=== PATIENT | female | born 1985 | race Caucasian/White ===

== ENCOUNTER 2019-09-27 23:20 | Inpatient (IN) | payer BC, SELFPAY ==
--- NOTE | 2019-09-27 23:20 | LDADM ---
This patient, Nae Rothman, was admitted to Labor/Delivery/Recovery 103 on 09/27/19 at 23:20. Plans for labor, pain management and were discussed with patient. Patient/family oriented to hospital policies and general routines including ID bracelet, bed and alarms, visiting hours, pain management, procedures, bathroom and other care routines, personal items, smoking policy, room service/diet and guest tray routines, infant security routines, and visiting hours. Patient/Family are encouraged to report perceived risks to care and to ask questions if they do not understand what they are told or what they should do. See OBIX for further documentation.
[2019-09-27 23:35] VITALS: TEMP 36.6
[2019-09-27] MEDS: LACTATED RINGERS 1,000 ML 999 ML IV CONT (23:45)
[2019-09-27 23:48] VITALS: BP 118/80; PULSE 80
[2019-09-27 23:51] VITALS: BP 118/86; PULSE 87
[2019-09-27 23:52] VITALS: PULSE 98; O2SAT 91
[2019-09-27 23:54] LABS: Glucose Point of Care 110 (65-105)
[2019-09-27 23:55] LABS: Basophils Percent Auto 0.2 % (0.2-1.2); Eosinophils Absolute Auto 0.1 K/mm3 (0-0.3); Eosinophils Percent Auto 0.7 % (0-4.4); Hematocrit 33.4 % (37.0-47.0); Hemoglobin 11.8 g/dL (12.0-15.0); Immature Granulocyte Absolute 0.06 K/mm3 (0.00-0.031); Immature Granulocyte Percent A 0.6 % (0-0.5); Lymphocytes Absolute Auto 1.89 K/mm3 (0.9-3.2); Lymphocytes Percent Auto 18.8 % (18.3-44.2); Mean Corpuscular HGB Conc 35.3 g/dl (32-36); Mean Corpuscular Hemoglobin 32.5 pg (26-34); Monocytes Absolute Auto 0.7 K/mm3 (0.1-0.6); Monocytes Percent Auto 6.9 % (2.6-8.5); Neutrophils Absolute Auto 7.3 K/mm3 (1.3-6.7); Neutrophils Percent Auto 72.8 % (45.5-73.1); Platelet Count Result 230 k/mm3 (150-375); Red Blood Count 3.63 M/mm3 (4.2-5.4); Red Cell Distribution Width 13.1 % (11.5-14.5)
[2019-09-27 23:57] VITALS: PULSE 84; O2SAT 100
[2019-09-28] VITALS (61 sets, daily range): BP systolic 86–126; BP diastolic 57–102; PULSE 72–205; RESP 14–16; TEMP 36.6–37.2; O2SAT 79–100; BMI 23.8
[2019-09-28] MEDS: LACTATED RINGERS 1,000 ML 125 ML IV CONT (00:21)
--- NOTE | 2019-09-28 01:42 | P.HP_ITS ---
Obstetrics - Admit Note Admission Note: record reviewed. No pertinent additions to the history and/or any subsequent changes in the physical findings that are not consistent with the expected course of the were found.previous section. At office today reviewed including risk of uterine, demise. pt arri radha in active labor with SROM of clear fluid. GDM diet controlled Additions to the history and/or subsequent changes in the physical findings follow. None.
[2019-09-28] MEDS: OXYTOCIN 30 UNITS/NS 500 ML 30 UNITS/500 ML BAG 999 UNITS IV CONT (02:00)
--- NOTE | 2019-09-28 02:18 | P.PCNOB_ITS ---
OB - Delivery Note Procedure Delivery date: 09/28/19 Procedure: TOLAC events: Gestational Diabetes Intrapartal events: None Induction method: none Delivery monitor: external FHT and external uterine Route of delivery: Laceration description: Perineal - 2nd Degree (right) Delivery repair: vicryl Specimen: Yes Estimated blood loss (mL): 250 Anesthesia type: Epidural Disposition: other () [place] Baby Date of : 09/28/19 Time of : 01:59 Weeks of gestation at delivery: 39 gender: Male Weight (pounds): 6 Weight (ounces): 3 presentation: vertex position: Left Occiput Anterior cord vessel description: 3 Vessels score one minute: 8 score five minutes: 9 Narrative: skin to skin, mother and baby in stable condition
[2019-09-28] MEDS: OXYTOCIN 30 UNITS/NS 500 ML 30 UNITS/500 ML BAG 125 UNITS IV CONT (02:44)
[2019-09-28] MEDS: BENZOCAINE 20% AER SPR (*SP) 56 GM CAN 1 SPRAY TOPICAL (03:33)
[2019-09-28] MEDS: LANOLIN (LANSINOH) 7.5 GM CREAM 1 APPLIC TOPICAL (03:33)
[2019-09-28] MEDS: WITCH HAZEL 40 PADS 1 PAD TOPICAL (03:33)
[2019-09-28] MEDS: IBUPROFEN 600 MG TABLET PO ×2 (03:33→14:42)
--- NOTE | 2019-09-28 04:50 | PC.NURSE ---
Patient transferred to post room #291 via wheelchair. Support person present. Oriented to unit, room, information board, rooming in, admission packet and security measures. Patient verbalizes understanding.
[2019-09-28] MEDS: DOCUSATE SODIUM 100 MG CAPSULE PO (08:00)
[2019-09-28] MEDS: MULTIVIT/MIN/PREN/FOL AC/IRON TABLET 1 TAB PO (08:00)
[2019-09-29] MEDS: IBUPROFEN 600 MG TABLET PO (04:34)
[2019-09-29 04:35] LABS: Hematocrit 28.7 % (37.0-47.0); Hemoglobin 9.5 g/dL (12.0-15.0)
[2019-09-29] MEDS: POLYSACCHARIDE IRON COMPLEX 150 MG CAPSULE PO (07:58)
[2019-09-29] MEDS: MULTIVIT/MIN/PREN/FOL AC/IRON TABLET 1 TAB PO (07:58)
[2019-09-29] MEDS: DOCUSATE SODIUM 100 MG CAPSULE PO (07:58)
--- NOTE | 2019-09-29 08:43 | PM.OBPNVD ---
OB - PN: Subj Subjective Date/time seen: 09/29/19 08:43 Patient comments: no complaints, pain well controlled and other (Lochia similar to menses) [place] baby status: doing well OB - PN: Obj Data Labs CBC & Chem 7: 09/29/19 04:29 Labs: Laboratory Results - last 24 hr 09/29/19 04:29 Hgb 9.5 L Hct 28.7 L OB - PN A/P Plan day: 1 (s/p vaginal delivery, doing well) Plan: routine care and discharge home (Follow up in 4 weeks) Time Spent With Patient Time: Total time spent is greater than 50% in coordination of care (as documented) at patient's floor/unit and/or counseling patient: Time with patient: less than 15 minutes Exam Const: General: no acute distress GI: Inspection: other (Fundus firm and nontender at umbilicus) GI Palp: Yes Soft to palpation and No Tenderness to palpation present (GI) Extrem: General: no edema
--- NOTE | 2019-09-29 09:41 | WPDANLDPN2 ---
Anes-Prog Note L&D Date/Time: 09/29/19 09:41 Comfortable throughout: labor and delivery Neuraxial method: epidural Epidural/Spinal procedure site: clean & non-tender Neuro status: Neuro function grossly intact. Cardiovascular status: normal Respiratory status: normal Airway patency: baseline Mental status: baseline Post-Op hydration status: normal Vital Signs: Last Vital Signs Temp 36.9 C 09/28/19 19:20 Pulse 75 09/28/19 19:20 Resp 16 09/28/19 19:20 BP 101/69 09/28/19 19:20 Pulse Ox 100 09/28/19 10:52 Post-procedural complaints: none Patient feedback: Patient satisfied with anesthetic care.
[2019-09-29 12:20] VITALS: BP 103/62; PULSE 60; RESP 14; TEMP 36.7
[2019-09-30 10:31] LABS: Rapid Plasma Reagin Non-Reactive (NonReactive)
[2019-10-01 14:48] VITALS: BP 136/88; PULSE 84; RESP 20; TEMP 36.9; O2SAT 100
--- NOTE | 2019-10-01 18:36 | PM.OBDSVD ---
OB - DS: Summary OB Procedures : None OB Procedures Intrapartum: Spontaneous Vag Delivery and OB Procedures: : None Time Spent with Patient Time attestation: Total time spent providing and/or coordinating discharge services: DS: Data Data Completed and Pending Completed studies during hospitalization: Pending at discharge 09/28/19 02:05 Surgical [PTH] Routine Discharge Plan Discharge Attending physician on discharge: Aubree Keith Consulting providers: Sury Abreu Discharging Clinician: Aubree Keith Patient Disposition: Home, Self-Care Activity: may shower and pelvic rest Diet: regular Discharge Instructions: Education: Mom and Baby Guide Given to: Mother Follow-Up: Call your delivering provider's office for an appointment to be seen in: 4 Weeks Mom and baby should come to the [facility] for the follow-up appointment. Appointment Date/Time: September 30, 2019 at 2:30 pm What to expect at your follow-up visit: Blood Pressure Check Physical Assessment Call [phone] if you are unable to keep your appointment time. BREAST CARE: 1. Wear a snug supportive bra. 2. For engorgement discomfort: Breast Feeding: A. Apply warm moist washcloths B. Express milk as needed to relieve engorgement C. Wear loose clothing 3. For sore nipples: A. Identify correct latch-on B. Apply warm moist washcloths before and after nursing C. Air dry nipples after nursing D. May apply Lansinoh cream to nipples PERINEAL CARE: 1. Until bleeding stops, use your elsa bottle after urinating 2. Change your pad frequently throughout the day 3. You may take sitz baths several times a day (fill your bathtub with warm water and soak for 20 minutes.) Do NOT bathe in the water 4. No tub baths until seen by your physician - You may shower ACTIVITY: 1. Rest as much as possible. 2. Do not exercise or lift anything heavier than your baby (such as laundry or other children.) 3. Avoid stairs or driving as much as possible. 4. Do not put anything into the vagina. No douching, tampons, or sexual activity until seen by physician. NOTIFY PHYSICIAN IF YOU HAVE ANY QUESTIONS OR IF ANY OF THE FOLLOWING SYMPTOMS OCCUR: 1. If your perineum becomes red, swollen, or more painful than what you have experienced in the hospital. 2. If your vaginal bleeding becomes foul smelling. 3. If your vaginal bleeding becomes more heavy than a period or if your bleeding changes from pink to bright red. However, you may pass an occasional walnut-sized clot once or twice for the first week . 4. If you experience a sharp, shooting pain in you calves. 5. If you discover a hard, reddened area on your breast or if you experience flu-like symptoms. DIET: 1. Eat regular, well-balanced meals. 2. Drink plenty of fluids daily. If , drink to thirst. Stand Alone Forms: General Discharge Information Follow-up/Referrals: Sury Abreu CNM [Certified Nurse Superintendent [place]] - 4 Weeks Discharge Medications: New hydrocodone-acetaminophen 5-325 mg Tablet 1 tab PO Q3HR PRN (Reason: Pain Rated 4-6) Qty: 20 RF: 0 ibuprofen 600 mg Tablet 600 mg PO Q6H PRN (Reason: Cramping) Qty: 60 RF: 0 Continued PNV cmb#95-ferrous fumarate-FA [] 28 mg iron- 800 mcg Tablet 1 tablet PO DAILY RF: 0 Date of admission: 09/27/19 23:20 Primary Care Provider: UNKNOWN,DOCTOR Admitting Provider: Aubree Keith Discharge Date/Time: 09/29/19 11:30 Attending physician on admission: Aubree Keith
--- NOTE | 2019-10-04 07:30 | PM.OBDSVD ---
DS: Diagnosis Admitting Diagnosis Admitting Diagnosis: Encounter for supervision of normal , unspecified, third trimester OB - DS: Summary OB Procedures : None OB Procedures Intrapartum: Spontaneous Vag Delivery OB Procedures: : None Time Spent with Patient Time attestation: Total time spent providing and/or coordinating discharge services: DS: Data Data Completed and Pending Completed studies during hospitalization: Pending at discharge 09/28/19 02:05 Surgical [PTH] Routine Discharge Plan Discharge Attending physician on discharge: Aubree Keith Consulting providers: Sury Abreu Discharging Clinician: Aubree Keith Patient Disposition: Home, Self-Care Activity: may shower and pelvic rest Diet: regular Discharge Instructions: Education: Mom and Baby Guide Given to: Mother Follow-Up: Call your delivering provider's office for an appointment to be seen in: 4 Weeks Mom and baby should come to the [facility] for the follow-up appointment. Appointment Date/Time: September 30, 2019 at 2:30 pm What to expect at your follow-up visit: Blood Pressure Check Physical Assessment Call [phone] if you are unable to keep your appointment time. BREAST CARE: 1. Wear a snug supportive bra. 2. For engorgement discomfort: Breast Feeding: A. Apply warm moist washcloths B. Express milk as needed to relieve engorgement C. Wear loose clothing 3. For sore nipples: A. Identify correct latch-on B. Apply warm moist washcloths before and after nursing C. Air dry nipples after nursing D. May apply Lansinoh cream to nipples PERINEAL CARE: 1. Until bleeding stops, use your elsa bottle after urinating 2. Change your pad frequently throughout the day 3. You may take sitz baths several times a day (fill your bathtub with warm water and soak for 20 minutes.) Do NOT bathe in the water 4. No tub baths until seen by your physician - You may shower ACTIVITY: 1. Rest as much as possible. 2. Do not exercise or lift anything heavier than your baby (such as laundry or other children.) 3. Avoid stairs or driving as much as possible. 4. Do not put anything into the vagina. No douching, tampons, or sexual activity until seen by physician. NOTIFY PHYSICIAN IF YOU HAVE ANY QUESTIONS OR IF ANY OF THE FOLLOWING SYMPTOMS OCCUR: 1. If your perineum becomes red, swollen, or more painful than what you have experienced in the hospital. 2. If your vaginal bleeding becomes foul smelling. 3. If your vaginal bleeding becomes more heavy than a period or if your bleeding changes from pink to bright red. However, you may pass an occasional walnut-sized clot once or twice for the first week . 4. If you experience a sharp, shooting pain in you calves. 5. If you discover a hard, reddened area on your breast or if you experience flu-like symptoms. DIET: 1. Eat regular, well-balanced meals. 2. Drink plenty of fluids daily. If , drink to thirst. Stand Alone Forms: General Discharge Information Follow-up/Referrals: Sury Abreu CNM [Certified Nurse Operations Support Manager] - 4 Weeks Discharge Medications: New hydrocodone-acetaminophen 5-325 mg Tablet 1 tab PO Q3HR PRN (Reason: Pain Rated 4-6) Qty: 20 RF: 0 ibuprofen 600 mg Tablet 600 mg PO Q6H PRN (Reason: Cramping) Qty: 60 RF: 0 Continued PNV cmb#95-ferrous fumarate-FA [] 28 mg iron- 800 mcg Tablet 1 tablet PO DAILY RF: 0 Date of admission: 09/27/19 23:20 Primary Care Provider: UNKNOWN,DOCTOR Admitting Provider: Aubree Keith Discharge Date/Time: 09/29/19 11:30 Attending physician on admission: Aubree Keith
== END 2019-09-29 11:30 | disposition home or self-care (01) | DRG 807 ==
LOC: ANHLDR 23:56 → ANHOB2 09-28 05:19
PROVIDERS: Advanced Practice Midwife; Admitting Provider Obstetrics & Gynecology; Visit Provider Obstetrics & Gynecology
DX: O34.211 Maternal care for low transverse scar from previous cesarean delivery (principal); Z37.0 Single live birth; O24.420 Gestational diabetes mellitus in childbirth, diet controlled; O70.1 Second degree perineal laceration during delivery; Z3A.39 39 weeks gestation of pregnancy
CPT/HCPCS: 36415; 85014; 85018; 85025; 86592; 86850; 86900; 86901; 88307; A9270; J2590; J2795; J7120

== ENCOUNTER 2020-11-03 12:42 | Emergency (ER) | payer BC, SELFPAY ==
--- NOTE | ~2020-11-03 | CT_ITS ---
EXAMINATION: CT brain wo/w con EXAM DATE: 11/03/2020 14:57 INDICATION: Headache, right side. TECHNIQUE: Spiral CT of the head was performed without contrast. Axial, coronal and sagittal images were reviewed. Patient was then injected with 100 cc Omnipaque 350 intravenous contrast and reimaged. Postcontrast axial, coronal, sagittal reformatted images reviewed. The dose-length product (DLP) f or this examination was 1210.67 mGy-cm. The exposure was tailored according to patient size, and ite rative reconstruction (ASIR) was used as additional dose reduction technique. There is no prior stud y for comparison. FINDINGS: There is no acute intraparenchymal hemorrhage. No evidence of intraparenchymal brain mass lesion. No evidence of acute infarction. There is no mass effect or midline shift. The ventricles are normal in size. There are no extra-axial collections. There are no acute calvarial fractures. T he orbits are unremarkable. Soft tissue is unremarkable. The visualized sinuses and mastoid air michelle ls are well aerated. There are no areas of abnormal enhancement on the postcontrast images. IMPRESSION: 1. Normal head CT examination. Reviewed, dictated and finalized at location B.
[2020-11-03 12:49] VITALS: BP 99/60; PULSE 72; RESP 18; TEMP 37; O2SAT 100
--- NOTE | 2020-11-03 14:11 | ED.HA ---
HPI - Headache General Chief Complaint: Headache Stated Complaint: headache Time Seen by Provider: 11/03/20 12:49 History of Present Illness HPI Narrative: Patient is a 35-year-old female who presents ER with right-sided headache. Began at 11 AM. Sudden pressure along the right side. Associated with burning going into her ear and face. No dizziness or change in vision or hearing. Headache has improved with ibuprofen but has not totally abated. Discomfort in the ear has also improved. No drainage from her ear. Patient reports 1 week earlier she had tinnitus in her right ear associate with some mild dizziness but does not occurring today. No previous history of vertigo. No family history of intracranial hemorrhage or cerebral aneurysm. Related Data Home Medications Medication Instructions Recorded Confirmed PNV cmb#95-ferrous fumarate-FA 1 tablet PO DAILY 09/02/19 09/28/19 [] Allergies Allergy/AdvReac Type Severity Reaction Status Date / Time No Known Allergies Allergy Verified 09/28/19 00:42 Review of Systems Review of Systems: All systems reviewed & are unremarkable except as noted in HPI and below Constitutional: Constitutional: Denies chills, Denies fever(s) and Denies weakness Eyes: Eyes: Denies change in vision and Denies photophobia ENT: Reports dizziness, Denies nasal congestion and Denies sore throat Comments: Tinnitus Cardiovascular: Cardiovascular: Denies chest pain and Denies radiating jaw, neck or arm pain Neurologic: Denies confusion, Denies syncope, Reports headache(s), Denies focal weakness and Denies numbness PMFSH Past Medical History Medical History (Updated 11/03/20 @ 15:45 by Arnel Reyes MD) Healthy female adult Surgical History Surgical History (Updated 11/03/20 @ 14:15 by Arnel Reyes MD) No history of previous surgery Family History Family History (Updated 09/02/19 @ 15:43 by Iftikhar Stephens RN) Other Unknown family medical history Social History Social History Smoking status: Never smoker Substance use: never Gender identity (if verbalized by the patient): Female Spiritual care concerns: No Exam Narrative: Exam Narrative: GENERAL: Well-appearing, well-nourished, and in no acute distress. HEAD: Normocephalic, atraumatic. EYES: PERRLA and EOMI. ENT: Mucous membranes moist. TMs normal bilaterally. Ear canals free of cerumen. CHEST: Clear to auscultation. No respiratory distress. HEART: Regular rate and rhythm. Normal peripheral pulses. EXTREMITIES: Normal range of motion. No edema. NEURO: Moves all extremities well. Clear speech. Sensation intact. Alert and oriented x3. PSYCH: Normal mood and affect. Course Course Emergency Course: Patient from results. Headache resolved with Tylenol. Discharge home. Patient may be having eustachian tube dysfunction causing headache and vertiginous symptoms. Recommend scheduled Tylenol and ibuprofen for home and Zyrtec daily. Vital Signs Vital signs: Vital Signs Temperature 98.6 F 11/03/20 12:49 Pulse Rate 72 11/03/20 12:49 Respiratory Rate 18 11/03/20 12:49 Blood Pressure 99/60 L 11/03/20 12:49 Pulse Oximetry 100 11/03/20 12:49 Temperature 98.6 F 11/03/20 12:49 Pulse Rate 72 11/03/20 12:49 Respiratory Rate 18 11/03/20 12:49 Blood Pressure 99/60 L 11/03/20 12:49 Pulse Oximetry 100 11/03/20 12:49 MDM - Headache Lab Data Result diagrams: 11/03/20 14:15 Labs: Lab Results 11/03/20 Range/Units 14:15 Creatinine 0.80 (0.7-1.0) mg/dL Estim Creat Clear Calc 66 ml/min Estimated GFR > 60 (59 - ) UCG Bedside Result Negative Reference Range: Negative Imaging Data Radiologist's impression: ITS Impressions Head CT 11/03/20 14:59 IMPRESSION: 1. Normal head CT examination. Discharge Plan Discharge Clinical Impression:
[2020-11-03 14:36] LABS: Estimated CRCL calculation 66 ml/min; Estimated Glomerular Filt Rate > 60
--- NOTE | 2020-11-03 14:50 | PC.NURSE ---
Pt to CT scan at this time.
[2020-11-03 16:17] VITALS: BP 110/73; PULSE 64; RESP 17; O2SAT 100
== END 2020-11-03 16:26 | disposition home or self-care (01) ==
PROVIDERS: Emergency Provider Emergency Medicine
DX: H69.90 Unspecified Eustachian tube disorder, unspecified ear (principal); R51.9 Headache, unspecified
CPT/HCPCS: 36415; 70470; 81025; 82565; 96365; 99284; J0131; Q9967

== ENCOUNTER → 2020-11-20 08:18 | Outpatient (CLI) | payer BC, SELFPAY ==
--- NOTE | ~2020-11-20 | MMUS_ITS ---
EXAMINATION: MM diagnostic kasia RT w newton, US breast RT complete HISTORY: Palpable right breast mass TECHNIQUE: Additional 3-D tomosynthesis images of the right breast were performed and synthetic 2-D i mages were generated. CAD analysis was submitted and interpreted. High resolution Limited right breas t ultrasound was performed. COMPARISON: None BREAST PARENCHYMAL COMPOSITION: The breasts are extremely dense, which lowers the sensitivity of mamm ography. FINDINGS: MAMMOGRAPHIC FINDINGS: There is a mass in the upper outer quadrant of the right breast containing internal calcifications. T his mass corresponds to the palpable finding and measures approximately 1.4 cm maximum dimension. The re are innumerable diffuse calcifications throughout the right breast. ULTRASOUND: Right breast ultrasound: At 10:00, 7 cm from the nipple in the area of palpable concern there is a hy poechoic mass with dense posterior shadowing and internal vascularity measuring 1.4 cm. At 1:00, 4 cm from the nipple there is a 3 mm cyst. At 12:00, 3 cm from the nipple, there is an oval hypoechoic ma ss measuring 4 mm with parallel orientation, no posterior features or internal vascularity. At 1:00, 5 cm from the nipple, there is a 7 mm benign-appearing intramammary lymph node. IMPRESSION: 1. Abnormal right breast mass measuring 1.4 cm corresponding to the palpable abnormality. 2. Ultrasound-guided right breast biopsy recommended. BI-RADS category 4, suspicious findings. Reviewed, dictated and finalized at location A. IMPRESSION: 1. Abnormal right breast mass measuring 1.4 cm corresponding to the palpable ab normality. 2. Ultrasound-guided right breast biopsy recommended. BI-RADS category 4, suspicious findings.
== END ==
PROVIDERS: Visit Provider Advanced Practice Midwife
DX: R92.8 Other abnormal and inconclusive findings on diagnostic imaging of breast (principal)
CPT/HCPCS: 76641; 77061; 77065; G0279